=== PATIENT | male | born 1955 | race Caucasian/White ===

== ENCOUNTER 2020-06-22 08:03 | Outpatient (CLI) | payer MEDICARE, MEDICAID, SELFPAY ==
--- NOTE | ~2020-06-22 | US_ITS ---
EXAMINATION: [facility] EXAM DATE: 06/22/2020 10:25 INDICATION: Z00.00 - Encounter for general adult medical examination without abnormal findings abdomi nal aortic aneurysm screen . TECHNIQUE: Multiple grayscale and Doppler images of the aorta were obtained (by a technologist who pe rformed the scan) and subsequently reviewed. There is no prior study for comparison. FINDINGS: Abdominal aorta is normal in caliber, measuring 2.7 cm proximally, 1.9 cm mid aspect, 1.5 cm distally . Right and left iliac bifurcations also normal in caliber. No focal arterial sclerosis identified. IMPRESSION: Sonographically normal abdominal aorta. Reviewed, dictated and finalized at location A. INE HEDDLE CLEANER
--- NOTE | ~2020-06-22 | NM_ITS ---
EXAMINATION: NM isaiah stress w perfusion DATE: 06/22/2020 13:16 INDICATION: Chest pain. TECHNIQUE: Rest images were obtained following intravenous administration of 10 mCi Tc99m tetrofosmin (Myoview). The patient was infused intravenously with Lexiscan (regadenoson). Then, 28.3 mCi Tc99m t etrofosmin (Myoview) was administered intravenously, and stress images were obtained. Data was recons tructed into short axis and horizontal and vertical long axis SPECT images. Gated SPECT images were a lso obtained. COMPARISON: None. FINDINGS: There is a small, severe, fixed perfusion defect involving apical to mid inferior segments of left ventricle, consistent with infarct. No reversible component to suggest ischemia. There is no segmental wall motion abnormality. Left ventricular ejection fraction measures 58%. IMPRESSION: 1. 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 2. Normal left ventricular ejection fraction measuring 58%. Reviewed, dictated and finalized at location A. IER OPERATOR IMPRESSION: 1. Small area of severe infarct involving apical to mid inferior segments of le ft ventricle. 2. Normal left ventricular ejection fraction measuring 58%.
--- NOTE | 2020-06-22 08:46 | EST_ITS ---
Patient Info Name: Smith Figueroa Age: 65 years : 1955 Gender: Male Ht: 70 in Wt: 218 lbs BSA: 2.24 m2 Exam Date: 06/22/2020 9:52 AM Exam Location: [facility] Stress Patient Status: Outpatient Admit Date: 06/22/2020 Staff Ordering Physician: Monty Alvarado MD Attending Provider: Monty Alvarado MD Exercise Technologist: Nathen De Paz RDCS, RT Exercise Physician: Nixon Kemp DO Exam Type: CA stress isaiah w NM Study Info A regadenoson stress test was performed. Summary 1. 1. Negative lexiscan stress test for ischemic ST changes by ECG criteria. 2. 2. Baseline hypertension. 3. 3. Nuclear scan to follow and will be reported separately. Please correlate with it. 4. 4. Patient informed of the above results. Protocol: Lexiscan Stress ECG Details Stage: REST Duration (min): 1 min : 16 sec HR (bpm): 58 SBP (mmHg): 154 DBP (mmHg): 91 Stage: REST Duration (min): 12 min : 10 sec HR (bpm): 56 SBP (mmHg): 154 DBP (mmHg): 91 Stage: STAGE 1 Duration (min): 0 min : 59 sec HR (bpm): 60 SBP (mmHg): 154 DBP (mmHg): 77 Stage: RECOVERY Duration (min): 1 min : 0 sec HR (bpm): 64 SBP (mmHg): 154 DBP (mmHg): 77 Stage: RECOVERY Duration (min): 2 min : 0 sec HR (bpm): --- SBP (mmHg): 134 DBP (mmHg): 73 Stage: RECOVERY Duration (min): 2 min : 9 sec HR (bpm): --- SBP (mmHg): 134 DBP (mmHg): 73 Rest HR: 56 bpm Peak HR: 65 bpm Rest Sys BP: 154 mmHg Peak Sys BP: 154 mmHg Max Pred HR: 155 bpm % Max Pred HR: 42 % Target HR: 132 bpm Max RPP: 10,010 bpm*mmHg Termination Reason: Completed protocol Cardiac Symptoms: Shortness of breath Total Time: 1 min : 0 sec Rest Scott BP: 91 mmHg Peak Scott BP: 77 mmHg Total Dose: 0.4 mg Resting ECG Sinus bradycardia, borderline ST-T wave abnormality in inf/lat leads. Stress ECG No ST changes. Arrhythmias None. Report Signatures
== END 2020-06-22 08:04 | disposition home or self-care (01) ==
PROVIDERS: PCP Internal Medicine; Visit Provider Internal Medicine
DX: E11.65 Type 2 diabetes mellitus with hyperglycemia (principal); R94.31 Abnormal electrocardiogram [ECG] [EKG]; I11.0 Hypertensive heart disease with heart failure
CPT/HCPCS: 76706; 78452; 93017; A9502; J2785

== ENCOUNTER 2021-03-02 01:09 | Day surgery (SDC) | payer MEDICARE, MEDICAID, SELFPAY ==
[2021-02-23 12:57] VITALS: BMI 32.5
--- NOTE | 2021-02-23 13:16 | PC.NURSE ---
Report to the Outpatient Waiting Room, entrance under the green pavilion located off [facility], at time _0600__ on date _03/02/21__. OR Time: _0730__. - You and your visitor will be asked a series of questions to screen for COVID 19 for your protection. - A mask is required within the hospital. - Only one visitor is allowed at this time. Patient visitors will be guided where to wait when not with patient. Preoperative COVID Testing Requirements: No COVID Test needed if: (proof is required; if not received patient will have Rapid Test prior to entry) - Patient has received COVID Vaccine at least 14 days prior to procedure date or - Patient has positive COVID test result within last 90 days of surgery date. COVID Test needed if above criteria is not met If not COVID vaccinated a COVID test must be conducted within 72 hours of surgery and patient is asked to isolate self from time of testing until procedure. You will go to the [email or web address] for your COVID testing. The [email or web address] site is located at the corner of [address] [facility]. You will only be called if COVID results are positive and your surgeon may reschedule your elective surgery date. Patients may have clear liquids (water, carbonated beverages, clear teas, apple juice) until 3 hours prior to surgery with a maximum of 20 ounces. - No food from midnight until time of surgery - Infants may have breast milk until 4 hours before surgery, formula 6 hours prior to surgery. - Children will be allowed to drink immediately following surgery. If applicable, please bring a bottle or sippy cup to assist with drinking. Juice, water, soda, and popsicles are readily available. For infants on formula, please bring formula the day of surgery. Pacifiers are allowed. Take the following medications with a SIP of water the morning of surgery: _CARVEDILOL, HYDRALAZINE, ISOSORBIDE___ Medications to discontinue per physician _VIT D3 Date to take last dose__02/26/21 Please no make-up, nail kiswahili, hairspray, perfume, deodorant, or body powder the day of surgery. No jewelry (including any body piercings) or valuables the day of surgery, leave them at home. Please take a shower or bath the night before, or the morning of, surgery with an antibacterial soap. Wear comfortable, loose fitting clothing. Children are encouraged to wear pajamas. - Jewelry must be removed prior to entering the operating room. Rings and piercings that are not removed may be cut off. - The hospital will not accept responsibility for valuables. - Please leave all valuables, including medications, at home the day of surgery. If you are going home after surgery, a licensed jinriksha driver must drive you home. - NO public transportation without another adult. - We recommend that an adult stay with you for 24 hours following discharge. - We also recommend that you do not drive, make important decision, drink alcoholic beverages, or take any drugs that were not prescribed by your health care provider for at least 24 hours after your discharge time. For Pediatric surgeries, we recommend two adults accompany the child home (only one inside the building at this time). Follow any additional instructions given to you from your surgeon. Telephone instructions given to __PT___and asked if any additional questions and then verbalized understanding. Patient advised to call surgeon office or pre surgery nurse liaison [phone] if any additional questions.
--- NOTE | 2021-03-01 13:43 | P.PNAN_ITS ---
Anes - Initial Pre Proc Eval Procedure: Operation Date: 03/02/21 07:30 Proposed Procedures p Excision Basal Carcinoma Right Medial Cheek with Frozen Section, Possible Full Thickness Skin Graft or Local Tissue Transfer - Gaurav Manzo MD Date/Time: 03/01/21 13:43 Surgeon: Gaurav Manzo MD Pre Op Diagnosis: BCCA right medial cheek Patient Data Age: 65 Gender: M Height: 1.75 m Weight: 100 kg Allergies Allergy/AdvReac Type Severity Reaction Status Date / Time No Known Allergies Allergy Mild Verified 03/02/21 06:24 Home Medications Medication Instructions Recorded Confirmed Type nitroglycerin 0.4 mg sublingual 0.4 mg SUBLINGUAL Q5M PRN 09/21/19 02/23/21 Hist ory tablet isosorbide dinitrate 10 mg tablet 10 mg PO BID #180 tablet 10/14/19 03/02/21 Rx allopurinol 100 mg tablet 100 mg PO DAILY 90 Days #90 tablet 05/19/20 03/02/21 Rx ferrous sulfate 324 mg (65 mg 324 mg PO .QOD 90 Days #45 tablet 05/19/20 03/02/21 Rx iron) tablet,delayed release atorvastatin 40 mg tablet 40 mg PO DAILY 05/24/20 03/02/21 History blood sugar diagnostic #100 ea 05/24/20 08/04/20 Rx lancets 21 gauge #100 ea 05/24/20 08/04/20 Rx pen needle, diabetic 31 gauge x #100 each 07/15/20 08/04/20 Rx 3/16 carvedilol 25 mg BID 02/23/21 03/02/21 History cholecalciferol (vitamin D3) 125 mcg PO DAILY 02/23/21 03/02/21 History hydralazine 100 mg PO BID 02/23/21 03/02/21 History insulin detemir U-100 [Levemir 30 unit SUB-Q HS 02/23/21 03/02/21 History FlexTouch U-100 Insuln] lisinopril 20 mg PO QAM 02/23/21 03/02/21 History sitagliptin [Januvia] 25 mg PO DAILY 02/23/21 03/02/21 History Patient hx anesthesia problems: none Family hx anesthesia problems: none Results Review: All pre-operative results and documents have been reviewed as part of the pre-operative evaluation. [facility] Past Medical History Medical History (Updated 03/01/21 @ 13:44 by Guicho Bustamante MD) Anemia of chronic disease BPH (benign prostatic hyperplasia) Gastroesophageal reflux disease Gouty arthritis HTN (hypertension) Hypertensive heart disease with CHF Hypothyroidism, unspecified Mixed hyperlipidemia Obesity Type 2 diabetes mellitus with hyperglycemia Social History Social History Smoking status: Never smoker Second hand tobacco smoke exposure: No Alcohol intake: current Alcohol use details: STATES MAYBE 1 BEER A MONTH Substance use: never Substance use type: does not use Living arrangements: alone Spiritual care concerns: No Anes - Eval Final PreProcedure Day of Procedure 03/01/21 13:43 Patient weight: obese Heart: regular rate and rhythm Lungs: clear to auscultation and normal air movement Airway: Mallampati scale class II Neurological: alert and oriented Last oral intake: >/= 8 hours ASA classification: III Emergent: no Anesthetic plan: proceed Anesthesia type and monitoring: general GIVS and LMA Results Review: All pre-operative results and documents have been reviewed as part of the pre-operative evaluation. Informed Consent: The patient's anesthetic plan and its attendant risks and benefits were discussed with the patient/family/POA. Questions were solicited and answers provided to the satisfaction of the patient/family/POA.
[2021-03-02] MEDS: LACTATED RINGERS 1,000 ML 30 ML IV CONT (06:45)
[2021-03-02 06:50] LABS: Glucose Point of Care 93 mg/dl (65-105)
[2021-03-02 07:08] LABS: Prothrombin Time 13.3 Seconds (11.1-14.7)
[2021-03-02 07:09] LABS: Partial Thromboplastin Time 26.8 SECONDS (22.3-36.8)
--- NOTE | 2021-03-02 07:12 | WPDHPUPDATE1 ---
History and Physical Update Update Date/Time: 03/02/21 07:12 History and Physical has been reviewed, including an updated exam of the patient. There are NO changes in the patient's condition. Risks, benefits, and alternatives have been discussed and questions answered. Patient agrees to proceed with procedure.
[2021-03-02 07:14] VITALS: BP 170/65; PULSE 67; RESP 16; TEMP 36.6; O2SAT 99
[2021-03-02] MEDS: BACITRACIN OINTMENT 15 GM TUBE 1 APPLIC TOPICAL (07:30)
[2021-03-02] MEDS: LIDO 1%/EPINEPHRINE 1:100,000 50 ML VIAL 7 ML INFILTRATE (07:30)
[2021-03-02 09:04] VITALS: BP 111/58; PULSE 64; RESP 16; O2SAT 97
--- NOTE | 2021-03-02 09:22 | P.OP_ITS ---
Procedure Note - Detailed Date of Procedure 03/02/21 Pre-op Diagnosis BCCA right medial cheek Post-op Diagnosis same Procedure Performed 2.5 cm excision of BCC right medial cheek with FS and LTT 13 sq cm. Surgeon Gaurav Manzo MD Anesthesia MAC and local Indications Biopsy Description of Procedure The site on the right medial cheek was marked on the patient with his awareness in the holding area. Patient was taken to the operating room and placed supine on the operating table. A time-out was held and confirmed. He was given IV sedation as the entire face was prepped and draped in usual fashion. The head was elevated, the site was carefully marked for a peripheral incision. It was locally infiltrated with 1% lidocaine with epinephrine. The excision was carried out as marked and the specimen was removed in the mid subcutaneous layer. A suture marker at the 12:00 o'clock most superior position was placed and the specimen sent for frozen section. The pathologist confirmed the diagnosis and indicated all margins were free. The site was undermined at least a cm laterally and about a 0.5 cm onto the bridge of the nose. Two additional incisions were made, 1 paralleling the infraorbital rim that was 2 cm in length. And the 2nd was along the nasal labial fold approximately 2 cm in length. The intervening skin flap was elevated in the subcutaneous tissue with this tissue advanced easily to the nasal sidewall. The retention of the advancement flap was established with intradermal 4-0 Vicryl sutures at multiple sites. A standing cone was removed on the inferior aspect of the flap alongside the nose. A small standing cone was removed at the nasal orbital rim. This closure was accomplished with minimal distortion to the lower eyelid or the right nasal ala.. He is discharged from the operating room stable condition. He has a pre scription for hydrocodone 5/325 6. And a prescription for doxycycline 100 mg p.o. b.i.d. 10. Estimated Blood Loss 6 Drains No Packing No Pathology yes Complications No immediate complications Condition stable Disposition same day
[2021-03-02 09:30] VITALS: BP 115/66; PULSE 63; RESP 20
[2021-03-02 10:00] VITALS: BP 132/73; PULSE 61; RESP 20
[2021-03-02 10:20] VITALS: BP 149/74; PULSE 59; RESP 20
== END 2021-03-02 10:24 | disposition home or self-care (01) ==
PROVIDERS: Anesthesiology; PCP Emergency Medicine; Visit Provider Plastic Surgery
PROC: (CPT 14041; principal; 2021-03-02 07:30)
DX: C44.319 Basal cell carcinoma of skin of other parts of face (principal); I13.0 Hypertensive heart and chronic kidney disease with heart failure and stage 1 through stage 4 chronic kidney disease, or unspecified chronic kidney disease; I50.9 Heart failure, unspecified; E11.22 Type 2 diabetes mellitus with diabetic chronic kidney disease; N18.9 Chronic kidney disease, unspecified; E78.2 Mixed hyperlipidemia; E03.9 Hypothyroidism, unspecified; M10.9 Gout, unspecified; K21.9 Gastro-esophageal reflux disease without esophagitis; N40.0 Benign prostatic hyperplasia without lower urinary tract symptoms; D63.8 Anemia in other chronic diseases classified elsewhere; Z79.84 Long term (current) use of oral hypoglycemic drugs; Z79.4 Long term (current) use of insulin; E66.9 Obesity, unspecified; Z68.32 Body mass index [BMI] 32.0-32.9, adult
CPT/HCPCS: 14041; 36415; 82948; 85610; 85730; 88305; 88331; A9270; J1100; J2250; J2405; J2704; J3010; J7120